=== PATIENT | female | born 1945 | race Caucasian/White ===

== ENCOUNTER → 2022-02-24 | Outpatient (CLI) | payer MEDICARE, OTHER ==
[~2022-02-24] MED LIST: FLAGYL500 MG PO; FLOVENT DISKUS50 MCG; IBUPROFEN600 MG PO; LEVOFLOXACIN500 MG PO; LIPITOR TAB 1010 MG PO; LOPRESSOR 25 MG25 MG PO; LORATADINE10 MG PO; NORCO 5-325 TA1 EACH PO; PHENERGAN 12.12.5 M1 PO; TIZANIDINE HCL2 M1 PO
== END ==
LOC: RAD 16:06
DX: M25.561 Pain in right knee (principal); M25.571 Pain in right ankle and joints of right foot
CPT/HCPCS: 73564; 73610